=== PATIENT | female | born 1960 | race Asian ===

== ENCOUNTER 2018-06-14 01:14 | Emergency (ER) | payer BC ==
[~2018-06-14] VITALS: Ht 160 cm; Wt 45.4 kg
[~2018-06-14 01:14] MED LIST: UNOBMED
[2018-06-14] MEDS ORDERED: Sodium Chloride 500ML 500 ML IV ONE (01:20)
[2018-06-14 01:27] LABS: BASOPHILS % (AUTO) 0.6 % (0.0-2.0); EOSINOPHILS % (AUTO) 0.2 % (0.0-3.0); HEMATOCRIT 40.4 % (37.0-47.0); HEMOGLOBIN 14.1 G/DL (12.0-16.0); LYMPHOCYTES % (AUTO) 19.2 % (20.0-45.0); MEAN CORPUSCULAR VOLUME 90 FL (80-99); MONOCYTES % (AUTO) 2.3 % (1.0-10.0); NEUTROPHILS % (AUTO) 77.8 % (45.0-75.0); PLATELET COUNT 327 K/UL (150-450); RED CELL DISTRIBUTION WIDTH 11.3 % (11.6-14.8); WHITE BLOOD COUNT 13.4 K/UL (4.8-10.8)
[2018-06-14] MEDS ORDERED: Isovue-300 100ml vial INJ PRN (01:30)
[2018-06-14] MEDS ORDERED: HYDROmorphone 1mg/ml Carpuject IVP ONE ×2 (01:30→04:00)
[2018-06-14 01:40] LABS: ANION GAP 12 mmol/L (5-15); BLOOD UREA NITROGEN 8 mg/dL (7-18); CALCIUM 9.3 MG/DL (8.5-10.1); CARBON DIOXIDE 22 MMOL/L (21-32); CHLORIDE 104 MMOL/L (98-107); CREATININE 0.7 MG/DL (0.55-1.30); POTASSIUM 4.2 MMOL/L (3.5-5.1); SODIUM 138 MMOL/L (136-145)
[2018-06-14] MEDS ORDERED: DiphenhydrAMINE 50mg/ml Inj IVP ONE (01:45)
[2018-06-14] MEDS ORDERED: LORazepam Inj 2mg/ml 1ml IV ONE (01:45)
[2018-06-14] MEDS ORDERED: Dicyclomine HCl 10mg/5ml oral soln ORAL ONE (01:45)
[2018-06-14] MEDS ORDERED: Mylanta II UD 30ml ORAL ONE (01:45)
[2018-06-14 01:54] LABS: ALANINE AMINOTRANSFERASE 18 U/L (12-78); ALBUMIN 4.2 G/DL (3.4-5.0); ALBUMIN/GLOBULIN RATIO 1.2 (1.0-2.7); ALKALINE PHOSPHATASE 70 U/L (46-116); ASPARTATE AMINO TRANSFERASE 21 U/L (15-37); BILIRUBIN,TOTAL 0.6 MG/DL (0.2-1.0); CKMB < 0.5 NG/ML (0.0-3.6); CREATINE KINASE 81 U/L (26-308)
--- NOTE | 2018-06-14 01:54 | Emergency Room Report ---
History of Present Illness General Chief Complaint: Abdominal Pain Source: Patient Present Illness HPI Patient presents with complaints of significant mid epigastric mid abdominal pain Patient is histrionic upon arrival Brought in by paramedics Increased nausea Minimal vomiting Patient reports that she thinks she ate something bad about 6 hours prior to arrival which causes the discomfort Denies any fevers denies any diarrhea patient had recent appendectomy at [facility] 3 weeks ago Allergies: Coded Allergies: No Known Allergies (Unverified , 06/14/18) Patient History Past Medical History: see triage record Pertinent Family History: none Reviewed Nursing Documentation: PMH: Agreed; PSxH: Agreed Nursing Documentation-PMH Past Medical History: No History, Except For Hx Cardiac Problems: No Hx Gastrointestinal Problems: Yes - appendectomy 04/2018 Review of Systems All Other Systems: negative except mentioned in HPI Physical Exam Vital Signs Date Time Temp Pulse Resp B/P (MAP) Pulse Ox O2 Delivery O2 Flow Rate FiO2 06/14/18 01:03 97.2 120 22 122/61 98 Room Air Sp02 EP Interpretation: reviewed, normal General Appearance: moderate distress - Yelling in pain Head: normocephalic, atraumatic Eyes: bilateral eye PERRL, bilateral eye EOMI ENT: hearing grossly normal, normal pharynx Neck: full range of motion, supple Respiratory: lungs clear Cardiovascular #1: regular rate, rhythm Gastrointestinal: soft, other - Subjectively points to Mid epigastric for the pain Genitourinary: no CVA tenderness Musculoskeletal: normal inspection, back normal Neurologic: alert, oriented x3, responsive Psychiatric: anxious Skin: normal color, no rash, warm/dry Lymphatic: no adenopathy Procedures Critical Care Time Critical Care Time 50 minutes for multiple re-evaluations Critical findings concerning for bowel injury and possible , not including any procedural time Medical Decision Making Diagnostic Impression: Primary Impression: Superior mesenteric vein thrombosis Additional Impression: Abdominal pain ER Course With the history exam and presentation, multiple differentials considered, including but not limited to appendicitis, gastritis, cholecystitis, diverticulitis Patient's white blood cell count is elevated at 13,000 him history is within normal limits with a mildly elevated glucose Given the patient's significant discomfort Gen. surgery was also consulted CT imaging findings critical findings of SMV thrombus Patient is initiated on heparin emergently Contact is made to higher level of care I spoke to [facility] outreach liaison and surgery patient will require further vascular specialty referral emergently And is accepted for higher level of care transfer Labs Test 06/14/18 01:15 White Blood Count 13.4 K/UL (4.8-10.8) Red Blood Count 4.50 M/UL (4.20-5.40) Hemoglobin 14.1 G/DL (12.0-16.0) Hematocrit 40.4 % (37.0-47.0) Mean Corpuscular Volume 90 FL (80-99) Mean Corpuscular Hemoglobin 31.2 PG (27.0-31.0) Mean Corpuscular Hemoglobin Concent 34.8 G/DL (32.0-36.0) Red Cell Distribution Width 11.3 % (11.6-14.8) Platelet Count 327 K/UL (150-450) Mean Platelet Volume 6.1 FL (6.5-10.1) Neutrophils (%) (Auto) 77.8 % (45.0-75.0) Lymphocytes (%) (Auto) 19.2 % (20.0-45.0) Monocytes (%) (Auto) 2.3 % (1.0-10.0) Eosinophils (%) (Auto) 0.2 % (0.0-3.0) Basophils (%) (Auto) 0.6 % (0.0-2.0) Sodium Level 138 MMOL/L (136-145) Potassium Level 4.2 MMOL/L (3.5-5.1) Chloride Level 104 MMOL/L (98-107) Carbon Dioxide Level 22 MMOL/L (21-32) Anion Gap 12 mmol/L (5-15) Blood Urea Nitrogen 8 mg/dL (7-18) Creatinine 0.7 MG/DL (0.55-1.30) Estimat Glomerular Filtration Rate > 60 mL/min (>60) Glucose Level 195 MG/DL (74-106) Calcium Level 9.3 MG/DL (8.5-10.1) Total Bilirubin 0.6 MG/DL (0.2-1.0) Aspartate Amino Transf (AST/SGOT) 21 U/L (15-37) Alanine Aminotransferase (ALT/SGPT) 18 U/L (12-78) Alkaline Phosphatase 70 U/L (46-116) Total Creatine Kinase 81 U/L (26-308) Creatine Kinase MB < 0.5 NG/ML (0.0-3.6) Creatine Kinase MB Relative Index 0.6 Troponin I 0.000 ng/mL (0.000-0.056) Total Protein 7.6 G/DL (6.4-8.2) Albumin 4.2 G/DL (3.4-5.0) Globulin 3.4 g/dL Albumin/Globulin Ratio 1.2 (1.0-2.7) Lipase 95 U/L (73-393) EKG Diagnostic Results Rate: normal Rhythm: NSR ST Segments: no acute changes Rhythm Strip Diag. Results EP Interpretation: yes Rate: 66 Rhythm: NSR, no PVC's, no ectopy CT/MRI/US Diagnostic Results CT/MRI/US Diagnostic Results : Impression CT abdomen pelvis: Prominent gastric folds, extensive small bowel mesenteric edema likely secondary from thrombus within the superior mesenteric vein Last Vital Signs Date Time Temp Pulse Resp B/P (MAP) Pulse Ox O2 Delivery O2 Flow Rate FiO2 06/14/18 01:03 97.2 120 22 122/61 98 Room Air Status: improved Disposition: XFER SHT-TRM HOSP Condition: Critical Referrals: NOT CHOSEN IPA/,REFERRING (PCP) Vianney Bass DO Jun 14, 2018 01:54
[2018-06-14] MEDS ORDERED: Morphine Sulfate 4mg/ml Inj (IV/IM USE ONLY) IVP ONE (02:00)
[2018-06-14 03:00] VITALS: BP 136/68
[2018-06-14] MEDS ORDERED: Heparin 5000 units/ml inj IV ONE (03:45)
[2018-06-14] MEDS ORDERED: Heparin 25,000u/D5W 500ml 500 ML IV SCH (03:45)
[2018-06-14] MEDS ORDERED: HYDROmorphone 1mg/ml Carpuject ONE (04:13)
--- NOTE | 2018-06-14 04:15 | Consultation ---
DATE OF CONSULTATION: 06/14/2018 CONSULTING PHYSICIAN: Pamela Leahy M.D. REQUESTING PHYSICIAN: Vianney Bass D.O. from emergency room. REASON FOR CONSULTATION: Abdominal pain. HISTORY OF PRESENT ILLNESS: This is a 58-year-old oriental female, who presented to emergency room complaining of abdominal pain since 6 o'clock in the afternoon. The pain apparently located at epigastrium, had been associated with nausea and vomiting. She denied any previous history of similar pain. She denies any fever, cough, dysuria, or frequency. PAST MEDICAL HISTORY: She denies allergies, asthma, diabetes, hypertension, cardiac, or renal diseases. PAST SURGICAL HISTORY: Surgeries include laparoscopy, appendectomy a month ago, bilateral augmentation mammoplasty, and . SOCIAL HISTORY: The patient is a 58-year-old oriental female with three children. Denies smoking or drinking. REVIEW OF SYSTEMS: Unobtainable due to the condition of the patient and language barrier. PHYSICAL EXAMINATION: GENERAL: The patient appeared to be a well-developed and well-nourished 58-year-old female, lying on the gurney complaining of abdominal pain. HEENT: Head is normocephalic and atraumatic. Eyes, pupils are equal, round, and reactive to light. Mouth is clear. NECK: There is no palpable thyromegaly or adenopathy. CHEST: Clear to auscultation and percussion. HEART: There is no gallop or murmur. S1 and S2 are within normal limits. ABDOMEN: Soft and flat with tenderness at the epigastrium. She has scar of the transverse suprapubic incision and scar of the laparoscopy. Bowel sounds are present. GENITAL: Deferred. EXTREMITIES: Within normal limits. LABORATORY AND DIAGNOSTIC DATA: CBC has shown a WBC of 13,400 with mild left shift. Chemistry is within normal limits. A CT scan had been obtained, but the report is not ready. When I reviewed the CT scan, I could not see anything acute that we have to wait for the report of the radiologist. ASSESSMENT: Abdominal pain, most probably peptic ulcer disease. PLAN: At this time, she does not require any surgery. She requires conservative treatment. At termination of dictation report of CAT scan was recieved which was reported as blood clot in mesenteric vein. In the light of this finding patient requires to be transferred to a higher facility with vascular capability Pamela Leahy M.D. DR: KEILA JOB#: [id number] CC: DIAMANTE
[2018-06-14 04:45] VITALS: BP 138/54
[2018-06-14 05:35] VITALS: BP 142/60
[2018-06-14 05:50] VITALS: BP 142/60
--- NOTE | 2018-06-14 08:29 | Diagnostic Imaging Report ---
Clinical Indication: Abdominal pain for 3 days. Appendectomy 3 weeks prior Technique: No oral contrast utilized, per emergency room physician request IV administration nonionic contrast. Venous phase spiral acquisition obtained through the abdomen and pelvis. Multiplanar reconstructions were generated. Total dose length product 495.16 mGycm. CTDIvol(s) 10.08 mGy. Dose reduction achieved using automated exposure control Comparison: none Findings: Surgical staple lines are seen in the cecal region, presumably related to stated clinical history of prior appendectomy. Inflammatory changes of the fat surrounding the surgical bed are noted. The distal ileum is mildly dilated and fluid-filled, although no definite focal transition point is demonstrated. Questionable filling defects seen in the upstream superior mesenteric vein, images 47 through 49 of series 3. No loculated fluid collections are evident. There is mesenteric edema in the lower pelvis. Prominent nodes are seen in the lower pelvic small bowel mesentery. There is a small amount of free intraperitoneal fluid. No free intraperitoneal gas. No definite bowel wall thickening. Distal esophagus and duodenum are unremarkable. Gastric folds are prominent, probably an artifact of under distention The liver demonstrates multiple cysts as well as a few subcentimeter low-attenuation lesions which are too small to characterize. Some focal fatty change is demonstrated in the usual location adjacent to the falciform ligament. The gallbladder, bile ducts, pancreas, spleen, adrenals, right kidney are unremarkable. The left kidney demonstrates a small angiomyolipoma as well as a few subcentimeter low-attenuation lesions which are too small to characterize. No retroperitoneal or mesenteric mass or adenopathy. No pelvic mass or adenopathy. Uterus and adnexal structures appear unremarkable. The included lung bases demonstrate posterior dependent atelectatic changes. The bones are unremarkable. There are bilateral breast implants. Impression: Questionable small focus of thrombus within the upstream superior mesenteric vein, as described. If real, probably incompletely occlusive Postsurgical changes of the cecal region, as described. Surrounding inflammation likely relates to recent surgery. Dilated fluid-filled distal small bowel loops. This extends to the terminal ileum and no definite transition point is demonstrated. Findings most likely represent either residual postoperative ileus or altered small bowel motility related to the recent surgery. Small bowel obstruction at the level of the anastomosis not completely excludable, however. Edema of the small bowel mesentery. Most likely related to recent surgery although could be related to the possible superior mesenteric vein thrombosis. Small amount of free intraperitoneal fluid. Most likely related to recent surgery No evidence of focal abscess collection. Multiple hepatic cysts incidentally noted. Multiple subcentimeter low-attenuation liver lesions, too small to characterize, most likely benign simple cysts. No further follow-up necessary Left renal small angiomyolipoma. Left renal subcentimeter low-attenuation lesions, too small to characterize. No further follow-up necessary Other findings as noted, including bilateral breast implants, posterior dependent atelectatic pulmonary parenchymal changes This agrees with the preliminary interpretation provided overnight by [facility] teleradiology service. The CT scanner at is accredited by the [employer] and the scans are performed using protocols designed to limit radiation exposure to as low as reasonably achievable to attain images of sufficient resolution adequate for diagnostic evaluation.
== END 2018-06-14 05:40 | disposition short-term general hospital (02) ==
LOC: EDBD 01:14 → EMR 01:44 → 3E 02:01 → UNDOADMIN 02:01 → EDBEDREQ 02:18 → EMR 05:40
DX: I81 Portal vein thrombosis (principal); R10.13 Epigastric pain; K76.9 Liver disease, unspecified; K76.89 Other specified diseases of liver; Z90.49 Acquired absence of other specified parts of digestive tract
CPT/HCPCS: 36415; 74177; 80053; 82550; 82553; 83605; 83690; 84484; 85025; 85610; 85730; 93005; 96361; 96365; 96375; 96376; 99291; J1170; J1644; J2270; J2405; Q9967